=== PATIENT | male | born 1945 | race Caucasian/White ===

== ENCOUNTER 2018-12-03 12:24 | Inpatient (IN) | payer OTHER ==
[~2018-12-03] VITALS: Ht 175.3 cm; Wt 51.7 kg
[2018-12-03 12:31] VITALS: BP_SYST 104
[2018-12-03] MEDS ORDERED: NACL 0.9% 1,000 ML IV ONE (12:45)
[2018-12-03] MEDS ORDERED: cefTRIAXone 1 GM in D5W 50 ML IV ONE (13:00)
[2018-12-03] MEDS ORDERED: cefTRIAXone 1 GM VIAL ONE (13:15)
[2018-12-03 13:46] LABS: BASOPHILS % (AUTO) 0.5 % (0.0-2.0); EOSINOPHILS # (AUTO) 0.1 K/uL (0.0-0.4); EOSINOPHILS % (AUTO) 1.1 % (0.0-4.0); HEMATOCRIT 36.8 % (36-54); HEMOGLOBIN 11.9 g/dL (14.0-18.0); LYMPHOCYTES # (AUTO) 1.3 K/uL (1.0-5.5); LYMPHOCYTES % (AUTO) 18.4 % (20.5-51.5); MEAN CORPUSCULAR HEMOGLOBIN 28 pg (27-31); MEAN CORPUSCULAR HGB CONC 32 % (32-36); MEAN CORPUSCULAR VOLUME 86 fL (79.0-98.0); MONOCYTES # (AUTO) 0.6 K/uL (0.0-1.0); MONOCYTES % (AUTO) 9.1 % (1.7-9.3); NEUTROPHILS % (AUTO) 70.9 % (40.0-70.0); PLATELET COUNT (AUTO) 469 K/uL (130-430); RED BLOOD CELL COUNT(AUTO) 4.27 MIL/uL (4.2-6.2); RED CELL DISTRIBUTION WIDTH 12.9 % (9.0-15.0)
[2018-12-03 13:59] LABS: ANION GAP 6 (5-15); CALCIUM 8.6 mg/dL (8.4-11.0); CHLORIDE 104 mmol/L (98-107); CREATININE 0.68 mg/dL (0.55-1.30); GLUCOSE 96 mg/dL (70-99); POTASSIUM 4.2 mmol/L (3.5-5.1); SODIUM SERUM 136 mmol/L (136-145); UREA NITROGEN, BLOOD 23 mg/dL (8-21)
[2018-12-03 14:01] LABS: INR 1.1 (0.80-1.20); PROTHROMBIN TIME 11.6 SECS (9.5-12.5)
[2018-12-03 14:06] LABS: ALANINE AMINOTRANSFERASE 23 U/L (12-78); ALBUMIN 2.3 g/dL (3.4-4.8); ASPARTATE AMINOTRANSFERASE 25 U/L (10-37); LIPASE 191 U/L (73-393); TOTAL BILIRUBIN 0.4 mg/dL (0.0-1.0)
[2018-12-03] MEDS ORDERED: MULT-1117 (15:31)
[2018-12-03] MEDS ORDERED: LISI-600 PO (15:31)
[2018-12-03] MEDS ORDERED: ASCO500T20 PO (15:31)
[2018-12-03] MEDS ORDERED: ACET-2165 PO (15:31)
[2018-12-03] MEDS ORDERED: DOCU-144 PO (15:31)
[2018-12-03] MEDS ORDERED: LEVE25PO MC (15:31)
[2018-12-03] MEDS ORDERED: AMIN887L14 PO (15:31)
[2018-12-03] MEDS ORDERED: ASPI-1153 PO (15:31)
[2018-12-03] MEDS ORDERED: ZIN220 PO (15:31)
[2018-12-03 15:54] VITALS: BP_SYST 122
[2018-12-03 16:56] VITALS: BP_SYST 122
[2018-12-03 20:00] VITALS: BP_SYST 98
[2018-12-03] MEDS ORDERED: ONDANSETRON HCL 4 MG/2 ML VIAL IVP PRN (21:00)
[2018-12-03] MEDS ORDERED: HYDROcodone/ACETAMIN 10-325 MG TAB PO PRN (21:00)
[2018-12-03] MEDS ORDERED: LORazepam 2 MG/ML VIAL IVP PRN (21:00)
[2018-12-03] MEDS ORDERED: ACETAMINOPHEN 325 MG TABLET PO PRN (21:00)
[2018-12-03] MEDS ORDERED: HYDROcodone/ACETAMIN 5-325 MG TAB (NORCO/ VICODIN) PO PRN (21:00)
[2018-12-03] MEDS ORDERED: NORMAL SALINE 5 ML DISP.SYRIN IVF SCH (22:00)
[2018-12-03] MEDS: NORMAL SALINE 5 ML DISP.SYRIN IVF SCH (22:33)
[2018-12-04 00:50] VITALS: BP_SYST 125
[2018-12-04] MEDS: NORMAL SALINE 5 ML DISP.SYRIN IVF SCH ×3 (05:13→21:29)
[2018-12-04 07:44] LABS: EOSINOPHILS # (AUTO) 0.2 K/uL (0.0-0.4); EOSINOPHILS % (AUTO) 2.2 % (0.0-4.0); HEMATOCRIT 33.7 % (36-54); HEMOGLOBIN 11.2 g/dL (14.0-18.0); LYMPHOCYTES # (AUTO) 1.3 K/uL (1.0-5.5); LYMPHOCYTES % (AUTO) 18.8 % (20.5-51.5); MEAN CORPUSCULAR HEMOGLOBIN 28 pg (27-31); MEAN CORPUSCULAR HGB CONC 33 % (32-36); MEAN CORPUSCULAR VOLUME 85 fL (79.0-98.0); MONOCYTES # (AUTO) 0.8 K/uL (0.0-1.0); MONOCYTES % (AUTO) 12.2 % (1.7-9.3); NEUTROPHILS # (AUTO) 4.6 K/uL (1.8-7.7); NEUTROPHILS % (AUTO) 66.8 % (40.0-70.0); PLATELET COUNT (AUTO) 465 K/uL (130-430); RED BLOOD CELL COUNT(AUTO) 3.96 MIL/uL (4.2-6.2); WHITE BLOOD COUNT (AUTO) 6.9 K/uL (4.8-10.8)
[2018-12-04 07:49] VITALS: BP_SYST 165
[2018-12-04 08:01] LABS: ANION GAP 8 (5-15); CALCIUM 8.7 mg/dL (8.4-11.0); CHLORIDE 103 mmol/L (98-107); CREATININE 0.61 mg/dL (0.55-1.30); GLUCOSE 79 mg/dL (70-99); POTASSIUM 4.2 mmol/L (3.5-5.1); SODIUM SERUM 139 mmol/L (136-145); UREA NITROGEN, BLOOD 20 mg/dL (8-21)
[2018-12-04] MEDS: cefTRIAXone 1 GM IVPB PREMIX 50 ML IV SCH (08:53)
[2018-12-04] MEDS: MULTIVITAMINS TAB 1 TABLET PO SCH (08:59)
[2018-12-04] MEDS: LISINOPRIL 20 MG TABLET PO SCH (08:59)
[2018-12-04] MEDS: ASCORBIC ACID 500 MG TABLET PO SCH (09:00)
[2018-12-04] MEDS: ASPIRIN 81 MG TABLET(ECOTRIN) PO SCH (09:00)
[2018-12-04] MEDS ORDERED: ACETAMINOPHEN 325 MG TABLET PO SCH (09:00)
[2018-12-04] MEDS: DOCUSATE SODIUM 100 MG CAPSULE PO SCH (09:00)
[2018-12-04] MEDS: LEVOFLOXACIN 500 MG/D5W 100 ML IV SCH (09:38)
[2018-12-04 12:58] VITALS: BP_SYST 137
[2018-12-04 16:12] VITALS: BP_SYST 116
[2018-12-04 18:03] LABS: BILIRUBIN,URINE NEGATIVE (NEGATIVE); BLOOD, URINE 3+ (NEGATIVE); CLARITY/URINE HAZY (CLEAR); COLOR,URINE YELLOW (YELLOW); GLUCOSE,URINE NEGATIVE (NEGATIVE); KETONES,URINE TRACE (NEGATIVE); LEUKOCYTE ESTERASE ,URINE NEGATIVE (NEGATIVE); NITRITE, URINE NEGATIVE (NEGATIVE); PROTEIN URINE NEGATIVE (NEGATIVE)
[2018-12-04 18:32] LABS: BACTERIA,URINE FEW /HPF (None Seen); RBC,URINE >100 /HPF (0-3)
[2018-12-04 18:33] LABS: MUCUS,URINE 3+ /LPF (None Seen); URIC ACID CRYSTALS,URINE 0-10 /HPF (None Seen)
[2018-12-04 20:00] VITALS: BP_SYST 157
[2018-12-05 00:28] VITALS: BP_SYST 137
[2018-12-05] MEDS: NORMAL SALINE 5 ML DISP.SYRIN IVF SCH ×3 (05:59→21:23)
[2018-12-05 07:24] LABS: BASOPHILS % (AUTO) 0.2 % (0.0-2.0); EOSINOPHILS % (AUTO) 1.2 % (0.0-4.0); HEMATOCRIT 32.1 % (36-54); HEMOGLOBIN 10.6 g/dL (14.0-18.0); LYMPHOCYTES % (AUTO) 26.6 % (20.5-51.5); MEAN CORPUSCULAR HEMOGLOBIN 28 pg (27-31); MEAN CORPUSCULAR HGB CONC 33 % (32-36); MEAN CORPUSCULAR VOLUME 85 fL (79.0-98.0); MONOCYTES # (AUTO) 0.6 K/uL (0.0-1.0); MONOCYTES % (AUTO) 14.7 % (1.7-9.3); NEUTROPHILS # (AUTO) 2.2 K/uL (1.8-7.7); NEUTROPHILS % (AUTO) 57.3 % (40.0-70.0); PLATELET COUNT (AUTO) 506 K/uL (130-430); RED BLOOD CELL COUNT(AUTO) 3.78 MIL/uL (4.2-6.2); RED CELL DISTRIBUTION WIDTH 12.6 % (9.0-15.0); WHITE BLOOD COUNT (AUTO) 3.8 K/uL (4.8-10.8)
[2018-12-05 07:44] LABS: ANION GAP 9 (5-15); CALCIUM 8.3 mg/dL (8.4-11.0); CHLORIDE 101 mmol/L (98-107); CREATININE 0.62 mg/dL (0.55-1.30); GLUCOSE 93 mg/dL (70-99); POTASSIUM 3.6 mmol/L (3.5-5.1); SODIUM SERUM 135 mmol/L (136-145); UREA NITROGEN, BLOOD 16 mg/dL (8-21)
[2018-12-05 08:00] LABS: ALANINE AMINOTRANSFERASE 18 U/L (12-78); ALBUMIN 2.3 g/dL (3.4-4.8); ASPARTATE AMINOTRANSFERASE 19 U/L (10-37); C-REACTIVE PROTEIN QUANT 2.6 mg/dL (0-0.5); TOTAL BILIRUBIN 0.4 mg/dL (0.0-1.0)
[2018-12-05 08:33] VITALS: BP_SYST 136
[2018-12-05] MEDS: LISINOPRIL 20 MG TABLET PO SCH (08:35)
[2018-12-05] MEDS: ASPIRIN 81 MG TABLET(ECOTRIN) PO SCH (08:35)
[2018-12-05] MEDS: DOCUSATE SODIUM 100 MG CAPSULE PO SCH ×2 (08:35→09:55)
[2018-12-05] MEDS: cefTRIAXone 1 GM IVPB PREMIX 50 ML IV SCH (08:35)
[2018-12-05] MEDS: ASCORBIC ACID 500 MG TABLET PO SCH (08:35)
[2018-12-05] MEDS: MULTIVITAMINS TAB 1 TABLET PO SCH (08:36)
[2018-12-05 09:22] LABS: ERYTHROCYTE SEDIMENTATION RATE 48 MM/HR (0-15)
[2018-12-05] MEDS: LEVOFLOXACIN 500 MG/D5W 100 ML IV SCH (09:55)
[2018-12-05 12:58] VITALS: BP_SYST 149
[2018-12-05 16:40] VITALS: BP_SYST 130
[2018-12-05 20:45] VITALS: BP_SYST 97
[2018-12-05] MEDS: MUPIROCIN 2% TOPICAL OINTMENT 22 GM NS SCH (21:23)
[2018-12-06 00:55] VITALS: BP_SYST 138
[2018-12-06] MEDS: NORMAL SALINE 5 ML DISP.SYRIN IVF SCH ×3 (05:24→21:34)
[2018-12-06 06:56] LABS: BASOPHILS % (AUTO) 0.6 % (0.0-2.0); EOSINOPHILS % (AUTO) 0.9 % (0.0-4.0); HEMATOCRIT 38.1 % (36-54); HEMOGLOBIN 12.3 g/dL (14.0-18.0); LYMPHOCYTES # (AUTO) 1.8 K/uL (1.0-5.5); LYMPHOCYTES % (AUTO) 38.5 % (20.5-51.5); MEAN CORPUSCULAR HEMOGLOBIN 28 pg (27-31); MEAN CORPUSCULAR HGB CONC 32 % (32-36); MEAN CORPUSCULAR VOLUME 86 fL (79.0-98.0); MONOCYTES # (AUTO) 0.9 K/uL (0.0-1.0); MONOCYTES % (AUTO) 18.4 % (1.7-9.3); NEUTROPHILS # (AUTO) 1.9 K/uL (1.8-7.7); NEUTROPHILS % (AUTO) 41.6 % (40.0-70.0); PLATELET COUNT (AUTO) 533 K/uL (130-430); RED BLOOD CELL COUNT(AUTO) 4.46 MIL/uL (4.2-6.2); RED CELL DISTRIBUTION WIDTH 12.9 % (9.0-15.0); WHITE BLOOD COUNT (AUTO) 4.6 K/uL (4.8-10.8)
[2018-12-06 07:04] LABS: ALANINE AMINOTRANSFERASE 20 U/L (12-78); ALBUMIN 2.6 g/dL (3.4-4.8); ANION GAP 7 (5-15); ASPARTATE AMINOTRANSFERASE 25 U/L (10-37); C-REACTIVE PROTEIN QUANT 1.6 mg/dL (0-0.5); CALCIUM 8.6 mg/dL (8.4-11.0); CHLORIDE 101 mmol/L (98-107); CREATININE 0.75 mg/dL (0.55-1.30); GLUCOSE 90 mg/dL (70-99); POTASSIUM 3.9 mmol/L (3.5-5.1); SODIUM SERUM 136 mmol/L (136-145); TOTAL BILIRUBIN 0.3 mg/dL (0.0-1.0); UREA NITROGEN, BLOOD 15 mg/dL (8-21)
[2018-12-06 08:00] VITALS: BP_SYST 128
[2018-12-06] MEDS: cefTRIAXone 1 GM IVPB PREMIX 50 ML IV SCH (08:53)
[2018-12-06] MEDS: ASPIRIN 81 MG TABLET(ECOTRIN) PO SCH (08:58)
[2018-12-06] MEDS: MUPIROCIN 2% TOPICAL OINTMENT 22 GM NS SCH ×2 (08:58→20:52)
[2018-12-06] MEDS: DOCUSATE SODIUM 100 MG CAPSULE PO SCH (08:58)
[2018-12-06] MEDS: LEVOFLOXACIN 500 MG/D5W 100 ML IV SCH (08:58)
[2018-12-06] MEDS: MULTIVITAMINS TAB 1 TABLET PO SCH (08:58)
[2018-12-06] MEDS: ASCORBIC ACID 500 MG TABLET PO SCH (08:58)
[2018-12-06] MEDS: LISINOPRIL 20 MG TABLET PO SCH (08:59)
[2018-12-06 09:02] LABS: ERYTHROCYTE SEDIMENTATION RATE 48 MM/HR (0-15)
[2018-12-06 12:16] VITALS: BP_SYST 129
[2018-12-06] MEDS: BALSAM PERU/CASTOR OIL 60 GM OINT...G. TP SCH (14:22)
[2018-12-06] MEDS: OSELTAMIVIR PHOSPHATE 75 MG CAPSULE PO SCH ×2 (14:22→20:52)
[2018-12-06] MEDS: VANCOMYCIN HCL 1,000 MG in NS 250 ML IV SCH (14:23)
[2018-12-06 16:34] VITALS: BP_SYST 96
[2018-12-06 20:00] VITALS: BP_SYST 109
[2018-12-06] MEDS ORDERED: NS IV SCH (21:00)
[2018-12-06] MEDS ORDERED: GENTAMICIN SULFATE IV SCH (21:00)
[2018-12-06] MEDS ORDERED: GENTAMICIN SULFATE IV ONE (21:00)
[2018-12-06] MEDS ORDERED: NS IV ONE ×2 (21:00→21:26)
[2018-12-06] MEDS ORDERED: GENTAMICIN 120 MG/100 ML IV ONE (21:26)
[2018-12-07 00:49] VITALS: BP_SYST 122
[2018-12-07] MEDS: NORMAL SALINE 5 ML DISP.SYRIN IVF SCH ×3 (06:37→21:12)
[2018-12-07 06:53] LABS: BASOPHILS % (AUTO) 0.4 % (0.0-2.0); EOSINOPHILS # (AUTO) 0.2 K/uL (0.0-0.4); EOSINOPHILS % (AUTO) 2.9 % (0.0-4.0); HEMATOCRIT 36.6 % (36-54); HEMOGLOBIN 11.9 g/dL (14.0-18.0); LYMPHOCYTES # (AUTO) 1.9 K/uL (1.0-5.5); LYMPHOCYTES % (AUTO) 29.8 % (20.5-51.5); MEAN CORPUSCULAR HEMOGLOBIN 27 pg (27-31); MEAN CORPUSCULAR HGB CONC 32 % (32-36); MEAN CORPUSCULAR VOLUME 85 fL (79.0-98.0); MONOCYTES # (AUTO) 0.6 K/uL (0.0-1.0); MONOCYTES % (AUTO) 9.5 % (1.7-9.3); NEUTROPHILS # (AUTO) 3.7 K/uL (1.8-7.7); NEUTROPHILS % (AUTO) 57.4 % (40.0-70.0); PLATELET COUNT (AUTO) 496 K/uL (130-430); RED BLOOD CELL COUNT(AUTO) 4.32 MIL/uL (4.2-6.2); RED CELL DISTRIBUTION WIDTH 12.8 % (9.0-15.0); WHITE BLOOD COUNT (AUTO) 6.4 K/uL (4.8-10.8)
[2018-12-07 07:07] LABS: ALANINE AMINOTRANSFERASE 18 U/L (12-78); ALBUMIN 2.6 g/dL (3.4-4.8); ANION GAP 5 (5-15); ASPARTATE AMINOTRANSFERASE 20 U/L (10-37); C-REACTIVE PROTEIN QUANT 1.4 mg/dL (0-0.5); CALCIUM 8.7 mg/dL (8.4-11.0); CHLORIDE 107 mmol/L (98-107); CREATININE 0.67 mg/dL (0.55-1.30); GLUCOSE 105 mg/dL (70-99); POTASSIUM 4.1 mmol/L (3.5-5.1); SODIUM SERUM 139 mmol/L (136-145); TOTAL BILIRUBIN 0.4 mg/dL (0.0-1.0); UREA NITROGEN, BLOOD 35 mg/dL (8-21)
[2018-12-07 08:00] VITALS: BP_SYST 118
[2018-12-07] MEDS: DOCUSATE SODIUM 100 MG CAPSULE PO SCH (09:05)
[2018-12-07] MEDS: OSELTAMIVIR PHOSPHATE 75 MG CAPSULE PO SCH ×2 (09:05→21:10)
[2018-12-07] MEDS: LISINOPRIL 20 MG TABLET PO SCH (09:05)
[2018-12-07] MEDS: ASCORBIC ACID 500 MG TABLET PO SCH (09:05)
[2018-12-07] MEDS: ASPIRIN 81 MG TABLET(ECOTRIN) PO SCH (09:06)
[2018-12-07] MEDS: MUPIROCIN 2% TOPICAL OINTMENT 22 GM NS SCH ×2 (09:06→21:11)
[2018-12-07] MEDS: MULTIVITAMINS TAB 1 TABLET PO SCH (09:06)
[2018-12-07] MEDS: BALSAM PERU/CASTOR OIL 60 GM OINT...G. TP SCH (09:07)
[2018-12-07] MEDS: LEVOFLOXACIN 500 MG/D5W 100 ML IV SCH (09:18)
[2018-12-07 09:56] LABS: ERYTHROCYTE SEDIMENTATION RATE 53 MM/HR (0-15)
[2018-12-07] MEDS: VANCOMYCIN HCL 1,000 MG in NS 250 ML IV SCH (13:04)
[2018-12-07 13:16] VITALS: BP_SYST 121
[2018-12-07 17:13] VITALS: BP_SYST 110
[2018-12-07] MEDS: GENTAMICIN SULFATE IV SCH (21:11)
[2018-12-07] MEDS: NS IV SCH (21:11)
[2018-12-08 00:42] VITALS: BP_SYST 112
[2018-12-08 05:56] LABS: ANION GAP 4 (5-15); C-REACTIVE PROTEIN QUANT 1.3 mg/dL (0-0.5); CALCIUM 8.6 mg/dL (8.4-11.0); CHLORIDE 105 mmol/L (98-107); CREATININE 0.57 mg/dL (0.55-1.30); GLUCOSE 105 mg/dL (70-99); POTASSIUM 4.2 mmol/L (3.5-5.1); SODIUM SERUM 136 mmol/L (136-145); UREA NITROGEN, BLOOD 30 mg/dL (8-21)
[2018-12-08] MEDS: NORMAL SALINE 5 ML DISP.SYRIN IVF SCH ×3 (06:45→22:04)
[2018-12-08 07:30] LABS: HEMATOCRIT 35.6 % (36-54); HEMOGLOBIN 11.7 g/dL (14.0-18.0); MEAN CORPUSCULAR HEMOGLOBIN 28 pg (27-31); MEAN CORPUSCULAR HGB CONC 33 % (32-36); MEAN CORPUSCULAR VOLUME 86 fL (79.0-98.0); PLATELET COUNT (AUTO) 446 K/uL (130-430); RED BLOOD CELL COUNT(AUTO) 4.14 MIL/uL (4.2-6.2)
[2018-12-08 07:33] LABS: WHITE BLOOD COUNT (AUTO) 9.8 K/uL (4.8-10.8)
[2018-12-08 07:52] VITALS: BP_SYST 105
[2018-12-08] MEDS: MUPIROCIN 2% TOPICAL OINTMENT 22 GM NS SCH ×2 (09:32→22:04)
[2018-12-08] MEDS: LEVOFLOXACIN 500 MG/D5W 100 ML IV SCH (09:34)
[2018-12-08] MEDS: LISINOPRIL 20 MG TABLET PO SCH (09:34)
[2018-12-08] MEDS: MULTIVITAMINS TAB 1 TABLET PO SCH (09:34)
[2018-12-08] MEDS: ASPIRIN 81 MG TABLET(ECOTRIN) PO SCH (09:34)
[2018-12-08] MEDS: OSELTAMIVIR PHOSPHATE 75 MG CAPSULE PO SCH ×2 (09:34→22:03)
[2018-12-08] MEDS: ASCORBIC ACID 500 MG TABLET PO SCH (09:34)
[2018-12-08] MEDS: DOCUSATE SODIUM 100 MG CAPSULE PO SCH (09:34)
[2018-12-08] MEDS: BALSAM PERU/CASTOR OIL 60 GM OINT...G. TP SCH (09:35)
[2018-12-08 11:33] LABS: ATYPICAL LYMPHOCYTES % 0 % (0-0); BAND % (MANUAL) 2 % (0-6); BASOPHILS % (MANUAL) 0 % (0-2); EOSINOPHILS % (MANUAL) 2 % (0-7); LYMPHOCYTES % (MANUAL) 29 % (20-46); MONOCYTES % (MANUAL) 10 % (0-11)
[2018-12-08 13:15] VITALS: BP_SYST 116
[2018-12-08] MEDS: VANCOMYCIN HCL 1,000 MG in NS 250 ML IV SCH (13:17)
[2018-12-08 17:05] VITALS: BP_SYST 138
[2018-12-08] MEDS: GENTAMICIN SULFATE IV SCH (22:03)
[2018-12-08] MEDS: NS IV SCH (22:03)
[2018-12-08 23:47] VITALS: BP_SYST 120
[2018-12-09] MEDS: NORMAL SALINE 5 ML DISP.SYRIN IVF SCH ×3 (05:42→22:58)
[2018-12-09 06:39] LABS: BASOPHILS % (AUTO) 0.5 % (0.0-2.0); EOSINOPHILS # (AUTO) 0.6 K/uL (0.0-0.4); EOSINOPHILS % (AUTO) 8.9 % (0.0-4.0); HEMATOCRIT 32.1 % (36-54); HEMOGLOBIN 10.5 g/dL (14.0-18.0); LYMPHOCYTES # (AUTO) 1.8 K/uL (1.0-5.5); LYMPHOCYTES % (AUTO) 25.9 % (20.5-51.5); MEAN CORPUSCULAR HEMOGLOBIN 28 pg (27-31); MEAN CORPUSCULAR HGB CONC 33 % (32-36); MEAN CORPUSCULAR VOLUME 85 fL (79.0-98.0); MONOCYTES # (AUTO) 0.7 K/uL (0.0-1.0); MONOCYTES % (AUTO) 10.5 % (1.7-9.3); NEUTROPHILS % (AUTO) 54.2 % (40.0-70.0); PLATELET COUNT (AUTO) 394 K/uL (130-430); RED BLOOD CELL COUNT(AUTO) 3.76 MIL/uL (4.2-6.2); RED CELL DISTRIBUTION WIDTH 12.7 % (9.0-15.0); WHITE BLOOD COUNT (AUTO) 7.1 K/uL (4.8-10.8)
[2018-12-09 06:54] LABS: ALANINE AMINOTRANSFERASE 18 U/L (12-78); ALBUMIN 2.4 g/dL (3.4-4.8); ANION GAP 4 (5-15); ASPARTATE AMINOTRANSFERASE 18 U/L (10-37); C-REACTIVE PROTEIN QUANT 1.4 mg/dL (0-0.5); CALCIUM 8.5 mg/dL (8.4-11.0); CHLORIDE 103 mmol/L (98-107); CREATININE 0.73 mg/dL (0.55-1.30); GLUCOSE 90 mg/dL (70-99); POTASSIUM 4.2 mmol/L (3.5-5.1); SODIUM SERUM 137 mmol/L (136-145); TOTAL BILIRUBIN 0.4 mg/dL (0.0-1.0); UREA NITROGEN, BLOOD 27 mg/dL (8-21)
[2018-12-09 08:00] VITALS: BP_SYST 129
[2018-12-09] MEDS: LEVOFLOXACIN 500 MG/D5W 100 ML IV SCH (09:59)
[2018-12-09] MEDS: ASPIRIN 81 MG TABLET(ECOTRIN) PO SCH (10:03)
[2018-12-09] MEDS: MUPIROCIN 2% TOPICAL OINTMENT 22 GM NS SCH ×2 (10:03→22:57)
[2018-12-09] MEDS: OSELTAMIVIR PHOSPHATE 75 MG CAPSULE PO SCH ×2 (10:03→22:58)
[2018-12-09] MEDS: DOCUSATE SODIUM 100 MG CAPSULE PO SCH (10:03)
[2018-12-09] MEDS: ASCORBIC ACID 500 MG TABLET PO SCH (10:03)
[2018-12-09] MEDS: LISINOPRIL 20 MG TABLET PO SCH (10:03)
[2018-12-09] MEDS: MULTIVITAMINS TAB 1 TABLET PO SCH (10:03)
[2018-12-09] MEDS: BALSAM PERU/CASTOR OIL 60 GM OINT...G. TP SCH (10:04)
[2018-12-09 10:26] LABS: ERYTHROCYTE SEDIMENTATION RATE 60 MM/HR (0-15)
[2018-12-09 12:35] VITALS: BP_SYST 121
[2018-12-09] MEDS: VANCOMYCIN HCL 1,000 MG in NS 250 ML IV SCH (13:18)
[2018-12-09 15:49] VITALS: BP_SYST 135
[2018-12-09 19:00] VITALS: BP_SYST 156
[2018-12-09 20:00] VITALS: BP_SYST 156
[2018-12-09] MEDS: NS IV SCH (22:56)
[2018-12-09] MEDS: GENTAMICIN SULFATE IV SCH (22:56)
[2018-12-10] VITALS (7 sets, daily range): BP systolic 125–155
[2018-12-10] MEDS: NORMAL SALINE 5 ML DISP.SYRIN IVF SCH ×2 (06:15→14:57)
[2018-12-10 07:34] LABS: ANION GAP 6 (5-15); C-REACTIVE PROTEIN QUANT 2.5 mg/dL (0-0.5); CALCIUM 8.9 mg/dL (8.4-11.0); CHLORIDE 102 mmol/L (98-107); CREATININE 0.56 mg/dL (0.55-1.30); GLUCOSE 98 mg/dL (70-99); POTASSIUM 4.1 mmol/L (3.5-5.1); SODIUM SERUM 135 mmol/L (136-145); UREA NITROGEN, BLOOD 17 mg/dL (8-21)
[2018-12-10 07:48] LABS: BASOPHILS % (AUTO) 0.3 % (0.0-2.0); EOSINOPHILS # (AUTO) 0.5 K/uL (0.0-0.4); EOSINOPHILS % (AUTO) 5.4 % (0.0-4.0); HEMOGLOBIN 11.1 g/dL (14.0-18.0); LYMPHOCYTES # (AUTO) 1.9 K/uL (1.0-5.5); LYMPHOCYTES % (AUTO) 21.4 % (20.5-51.5); MEAN CORPUSCULAR HEMOGLOBIN 28 pg (27-31); MEAN CORPUSCULAR HGB CONC 33 % (32-36); MEAN CORPUSCULAR VOLUME 85 fL (79.0-98.0); MONOCYTES # (AUTO) 0.9 K/uL (0.0-1.0); MONOCYTES % (AUTO) 10.7 % (1.7-9.3); NEUTROPHILS # (AUTO) 5.4 K/uL (1.8-7.7); NEUTROPHILS % (AUTO) 62.2 % (40.0-70.0); PLATELET COUNT (AUTO) 465 K/uL (130-430); RED BLOOD CELL COUNT(AUTO) 4.01 MIL/uL (4.2-6.2); RED CELL DISTRIBUTION WIDTH 12.9 % (9.0-15.0); WHITE BLOOD COUNT (AUTO) 8.8 K/uL (4.8-10.8)
[2018-12-10] MEDS: LEVOFLOXACIN 500 MG/D5W 100 ML IV SCH (09:31)
[2018-12-10] MEDS: DOCUSATE SODIUM 100 MG CAPSULE PO SCH (09:31)
[2018-12-10] MEDS: MUPIROCIN 2% TOPICAL OINTMENT 22 GM NS SCH (09:31)
[2018-12-10] MEDS: OSELTAMIVIR PHOSPHATE 75 MG CAPSULE PO SCH ×2 (09:32→19:47)
[2018-12-10] MEDS: ASPIRIN 81 MG TABLET(ECOTRIN) PO SCH (09:32)
[2018-12-10] MEDS: MULTIVITAMINS TAB 1 TABLET PO SCH (09:32)
[2018-12-10] MEDS: ASCORBIC ACID 500 MG TABLET PO SCH (09:32)
[2018-12-10] MEDS: LISINOPRIL 20 MG TABLET PO SCH (09:33)
[2018-12-10 11:02] LABS: ERYTHROCYTE SEDIMENTATION RATE 65 MM/HR (0-15)
[2018-12-10] MEDS: VANCOMYCIN HCL 1,000 MG in NS 250 ML IV SCH (14:56)
[2018-12-10] MEDS: BALSAM PERU/CASTOR OIL 60 GM OINT...G. TP SCH (16:54)
== END 2018-12-10 20:00 | DRG 871 ==
LOC: SED 12:24 → SMU 15:10
PROVIDERS: ADMIT Preventive Medicine Preventive Medicine/Occupational Environmental Medicine; ATTEND Preventive Medicine Preventive Medicine/Occupational Environmental Medicine
DX: A41.9 Sepsis, unspecified organism (principal); J10.00 Influenza due to other identified influenza virus with unspecified type of pneumonia; L03.312 Cellulitis of back [any part except buttock and flank]; E46 Unspecified protein-calorie malnutrition; E72.20 Disorder of urea cycle metabolism, unspecified; E87.1 Hypo-osmolality and hyponatremia; N39.0 Urinary tract infection, site not specified; Z68.1 Body mass index [BMI] 19.9 or less, adult; L89.152 Pressure ulcer of sacral region, stage 2; B96.20 Unspecified Escherichia coli [E. coli] as the cause of diseases classified elsewhere; B96.4 Proteus (mirabilis) (morganii) as the cause of diseases classified elsewhere; D64.9 Anemia, unspecified; D72.819 Decreased white blood cell count, unspecified; E87.6 Hypokalemia; R73.9 Hyperglycemia, unspecified; G14 Postpolio syndrome; G40.909 Epilepsy, unspecified, not intractable, without status epilepticus; I10 Essential (primary) hypertension; K21.9 Gastro-esophageal reflux disease without esophagitis; Z16.24 Resistance to multiple antibiotics; Z22.322 Carrier or suspected carrier of Methicillin resistant Staphylococcus aureus; Z88.6 Allergy status to analgesic agent; Z88.1 Allergy status to other antibiotic agents
CPT/HCPCS: 36415; 71045; 80048; 80053; 80170-TC; 81000-TC; 83605; 83690-TC; 85007; 85025; 85027; 85610-TC; 85651-TC; 86140; 86710; 87040-TC; 87070-TC; 87081; 87086; 87186-TC; 96365; 99285; G9035; J0696; J1580; J1956; J3370; J7030; J7050